=== PATIENT | male | born 1955 | race Caucasian/White ===

== ENCOUNTER → 2017-07-25 | Outpatient (CLI) | payer BC ==
[2017-07-25 09:30] LABS: BASO % 0.4 %; BASO ABS # 0.02 K/uL (0-0.2); COMPLETE YES; EOS % 3.8 %; HEMATOCRIT 45.4 % (42-52); IG% 0.2 %; LYMPH ABS # 1.33 K/uL (1.2-3.4); MEAN CELL VOLUME 92.8 fL (80-100); MEAN CORPUSCULAR HEMOGLOBIN 31.7 pg (25-34); MEAN CORPUSCULAR HGB CONC 34.1 g/dl (32-36); MEAN PLATELET VOLUME 9.9 fL (7.4-10.4); MONO % 12.4 %; NEUT % 55.2 %; PLATELET COUNT 184 K/uL (130-400); RED BLOOD COUNT 4.89 M/uL (4.7-6.1); WHITE BLOOD COUNT 4.75 K/uL (4.8-10.8)
[2017-07-25 10:24] LABS: ALT/SGPT 28 U/L (12-78); AST/SGOT 25 U/L (15-37); BLOOD UREA NITROGEN 14 mg/dl (7-18); BUN/CREATININE RATIO 16.8 (10-20); CALCIUM 8.7 mg/dl (8.5-10.1); CARBON DIOXIDE 26 mmol/L (21-32); CHLORIDE 107 mmol/L (98-107); CREATININE 0.83 mg/dl (0.60-1.40); GLUCOSE 97 mg/dl (70-99); SODIUM 140 mmol/L (136-145)
[2017-07-25 10:33] LABS: ALKALINE PHOSPHATASE 62 U/L (45-117); CHOLESTEROL 164 mg/dl (0-200); CHOLESTEROL/HDL RATIO 1.7; HDL CHOLESTEROL 96 mg/dl; LDL CHOLESTEROL CALCULATED 61 mg/dl; TRIGLYCERIDES 36 mg/dl (0-150); VERY LOW DENSITY LIPOPROT CALC 7 mg/dl
[2017-07-25 10:36] LABS: ESTIMATED AVERAGE GLUCOSE 108 mg/dl; HA1C FLAG Normal (Normal)
== END | disposition home or self-care (01) ==
LOC: C.LAB 08:50
PROVIDERS: ATTEND Physician Assistant Medical
DX: R53.83 Other fatigue (principal); E78.5 Hyperlipidemia, unspecified; R35.1 Nocturia; R73.09 Other abnormal glucose

== ENCOUNTER 2022-08-05 08:40 | Observation (INO) ==
--- NOTE | 2022-08-05 08:52 | Emergency Department Note ---
Impression & Plan Acute cholecystitis, Abdominal pain ED Provider Note NAME: ELIESER BERNAL AGE: 67 SEX: M : 1955 ARRIVES VIA: Walk-In INFORMANT: [Patient][, ] ED PROVIDER(S): [Emerson Morales MD] Chief Complaint: Abdominal pain HPI: Patient presents due to concern for right-sided abdominal pain which began around 2 PM last evening. The patient denies any obvious inciting event but states that he was treating an expansion tach off of a boiler with a 5 gallon bucket with water. Patient states that he move this may be about a foot but does not think that it causes symptoms. The patient did seem to get some dust in his nose drank some water had some postnasal drip and maybe 3 bouts of dry heaves. The patient denies any current nausea and has had no actual vomiting. The patient does chew snuff does drink 3-4 beers in the evening daily. Patient denies any chest pains or shortness of breath. The patient did try to take some Advil for his symptoms. This did not seem to improve and had difficulty with sleep last evening. Patient states that he does feel somewhat constipated as he typically has 2 bowel movements per day but only had 1 bowel movement yesterday in the morning. The patient denies any history of recent abdominal surgeries but has had 2 prior hernia repairs. He states this does not feel similar. Patient denies any dysuria or hematuria no blood in the stool. Patient denies any recent falls or trauma. Patient did have some constipation related symptoms after eating highly pizza several weeks ago and did have having pizza on Monday. Patient states he had no pain now. ROS: See HPI for pertinent positives and negatives. A total of 10 systems were reviewed and otherwise negative. Past medical history: See below Surgical history: See below Social history: See below Physical Exam: GENERAL: NAD, [wearing a mask,] non-toxic. EYE EXAM: Normal conjunctiva. PERRL, no anisocoria and EOM's grossly intact w/o pain. NECK: Supple, no nuchal rigidity, no adenopathy, non-tender. No signs of meningismus. FROM of the neck with good chin to chest and neck extension. No stridor. LUNGS: Clear to auscultation. Normal chest wall mechanics. HEART: NSR, no MRG. ABDOMEN: Abdomen soft, right upper and lower quadrant pain, negative obturators and psoas, normo-active bowel sounds, no masses, no rebound or guarding. BACK: No CVA TTP. SKIN: No rashes and no bruising. UPPER EXTREMITIES: Upper extremities are grossly normal. LOWER EXTREMITIES: Grossly normal, no edema. NEURO EXAM: A&O x3, cranial nerves II-XII grossly intact, normal speech, moves all 4 extremities. Differential diagnoses: Appendicitis, testicular torsion, infections, diverticulitis, UTI, obstruction, mesenteric ischemia, aortic pathology, inflammatory bowel disease, renal colic, PUD, pancreatitis, biliary pathology, hernia, volvulus, constipation, as well as other pathologies. Course: Patient was seen and evaluated the bedside. Full history physical exam was performed. EKG interpreted by me 88 Imaging Studies: See Below Cardiac monitoring: An order was placed for continuous cardiac monitoring. The monitor shows a rate of 88 with sinus rhythm. MDM: Patient was seen due to concern for abdominal pain. Blood work was obtained along with CT abdomen pelvis. Patient was ordered IV morphine and fluids. The patient's blood work showed a white count of 16 with a normal H&H and platelet count. The patient's kidney function is unremarkable with hyponatremia at 128. Bilirubin 1.3 but other LFTs are unremarkable with normal lipase. Urinalysis that showed blood but no signs of obvious infection. CT does show concern for acute cholecystitis. With the patient's hyponatremia may be secondary to the patient's alcohol use. I did speak with on-call general surgery Sweta Bills PA-C and the patient did have a COVID swab ordered and was told not to eat or drink. The patient did receive Zosyn at the behest of surgery. The patient subsequently taken to the OR and was admitted by Dr. Mckenzie. Past Med/Surg History Medical History No pertinent past medical history Surgical History H/O hernia repair Social History Smoking Status: Never smoker Tobacco Type: Cigarettes Do You Dip or Chew Tobacco: Yes; Hx Alcohol Use: Yes Hx Substance Use: No Preferred Language: Mongolian Feels Safe at Home: Yes Allergies Allergies Allergy/AdvReac Type Severity Reaction Status Date / Time No Known Allergies Allergy Unverified 08/05/22 16:11 Home Meds Previous Rx's Medication Instructions Recorded oxycodone-acetaminophen 5 mg-325 1 - 2 tab PO .q4-6h PRN pain, for 08/05/22 mg tablet (Percocet) initial therapy, max 6 tabs per day #15 tabs Results & Data (ED) Vital Signs Vital Signs - 24 hr 08/05/22 08:44 08/05/22 09:20 08/05/22 10:40 Temperature 36.6 C Temperature Source Temporal Artery Scan Pulse Rate 91 H Pulse Rate [Apical] 84 Pulse Rhythm [Apical] Pulse Strength [Apical] Respiratory Rate 16 18 Respiratory Effort / Characteristics Non-Labored Respiratory Depth Normal Respiratory Pattern Blood Pressure 152/82 H Blood Pressure [Left Arm] 146/90 H Blood Pressure Mean 105 Blood Pressure Mean [Left Arm] 108 Blood Pressure Position [Left Arm] Pulse Oximetry 98 98 97 Oxygen Delivery Method Room Air Room Air Room Air Oxygen Flow Rate Sepsis Recent Fever Within 48 Hours No Sepsis New/Unexplained Change in Mental Status No Sepsis Action Taken by Nursing No Action Required 08/05/22 12:00 08/05/22 12:56 08/05/22 15:08 Temperature 36.8 C 36.4 C L Temperature Source Oral Temporal Artery Scan Pulse Rate Pulse Rate [Apical] 85 87 85 Pulse Rhythm [Apical] Regular Regular Pulse Strength [Apical] Normal Normal Respiratory Rate 22 20 16 Respiratory Effort / Characteristics Non-Labored Spontaneous Non-Labored Spontaneous Respiratory Depth Normal Normal Respiratory Pattern Regular Regular Blood Pressure Blood Pressure [Left Arm] 145/90 H 137/88 133/91 Blood Pressure Mean Blood Pressure Mean [Left Arm] 108 104 105 Blood Pressure Position [Left Arm] Sitting Semi-fowlers Pulse Oximetry 98 98 100 Oxygen Delivery Method Room Air Room Air Oxymask Oxygen Flow Rate 9 Sepsis Recent Fever Within 48 Hours Sepsis New/Unexplained Change in Mental Status Sepsis Action Taken by Assisted Medications Current Medication List: was personally reviewed by me Laboratory Data Attestation: I reviewed the patient's lab results. Result diagrams: 08/05/22 09:15 08/05/22 09:15 Lab Results 09/30/22 09/30/22 09/30/22 Range/Units 09:15 09:15 09:15 WBC 16.15 H (4.8-10.8) K/ul RBC 5.06 (4.63-6.08) M/uL Hgb 15.9 (14.0-18.0) g/dl Hct 45.6 (40.1-51.0) % MCV 90.1 (80.0-100.0) fL MCH 31.4 (25.0-34.0) pg MCHC 34.9 (32.0-36.0) g/dL RDW Std Deviation 41.1 (36.4-46.3) fL RDW Coeff of Francisca 12.5 (11.5-14.5) % Plt Count 180 (130-400) K/uL MPV 9.5 (9.4-12.4) fL Immature Gran % (Auto) 0.4 % Neut % (Auto) 89.7 % Lymph % (Auto) 3.0 % Garfield % (Auto) 6.7 % Eos % (Auto) 0.0 % Baso % (Auto) 0.2 % Neut # (Auto) 14.49 H (1.4-6.5) K/uL Lymph # (Auto) 0.48 L (1.2-3.4) K/uL Garfield # (Auto) 1.08 H (0.24-0.82) K/uL Eos # (Auto) 0.00 (0-0.50) K/uL Baso # (Auto) 0.03 (0-0.2) K/uL Immature Gran # (Auto) 0.07 H (0.00-0.02) K/uL Sodium 128 L (136-145) mmol/L Potassium 4.0 (3.5-5.1) mmol/L Chloride 94 L (98-107) mmol/L Carbon Dioxide 27 (21-32) mmol/L Anion Gap 7 (3-11) BUN 9 (6-23) mg/dl Creatinine 0.65 (0.6-1.4) mg/dl Est Cr Clr Drug Dosing 110.7 ml/min Est GFR ( Amer) 115.1 ml/min Est GFR (Non-Af Amer) 99.3 ml/min BUN/Creatinine Ratio 13.8 (10-20) Glucose 123 H (70-99(Fasting)) mg/dl Calcium 9.0 (8.5-10.1) mg/dl Total Bilirubin 1.3 H (0.2-1.0) mg/dl AST 30 (13-39) U/L ALT 20 (7-52) U/L Alkaline Phosphatase 64 (34-104) U/L Total Protein 6.8 (6.0-8.3) gm/dl Albumin 3.9 (3.4-5.0) gm/dl Globulin 2.9 (2.5-4.0) gm/dl Albumin/Globulin Ratio 1.3 (0.9-2) Lipase 7 L (11-82) U/L Urine Color Yellow Urine Appearance Clear (Clear) Urine pH 6.5 (4.5-7.5) Ur Specific [place] 1.007 (1.000-1.030) Urine Protein Negative (Negative) Urine Glucose (UA) Negative (Negative) Urine Ketones Trace H (Negative) Urine Blood 2+ H (Negative) Urine Nitrite Negative (Negative) Urine Bilirubin Negative (Negative) Urine Urobilinogen Negative (Negative) Ur Leukocyte Esterase Negative (Negative) Urine WBC (Auto) 0 (0-5) /hpf Urine RBC (Auto) 10-30 H (0-4) /hpf U Hyaline Cast (Auto) 0 (0-5) /lpf U Epithel Cells (Auto) 0-5 (0-5) /lpf Urine Bacteria (Auto) Negative (Negative) SARS-CoV-2, RNA, NAAT (NEGATIVE) 08/05/22 Range/Units 11:08 WBC (4.8-10.8) K/ul RBC (4.63-6.08) M/uL Hgb (14.0-18.0) g/dl Hct (40.1-51.0) % MCV (80.0-100.0) fL MCH (25.0-34.0) pg MCHC (32.0-36.0) g/dL RDW Std Deviation (36.4-46.3) fL RDW Coeff of Francisca (11.5-14.5) % Plt Count (130-400) K/uL MPV (9.4-12.4) fL Immature Gran % (Auto) % Neut % (Auto) % Lymph % (Auto) % Garfield % (Auto) % Eos % (Auto) % Baso % (Auto) % Neut # (Auto) (1.4-6.5) K/uL Lymph # (Auto) (1.2-3.4) K/uL Garfield # (Auto) (0.24-0.82) K/uL Eos # (Auto) (0-0.50) K/uL Baso # (Auto) (0-0.2) K/uL Immature Gran # (Auto) (0.00-0.02) K/uL Sodium (136-145) mmol/L Potassium (3.5-5.1) mmol/L Chloride (98-107) mmol/L Carbon Dioxide (21-32) mmol/L Anion Gap (3-11) BUN (6-23) mg/dl Creatinine (0.6-1.4) mg/dl Est Cr Clr Drug Dosing ml/min Est GFR ( Amer) ml/min Est GFR (Non-Af Amer) ml/min BUN/Creatinine Ratio (10-20) Glucose (70-99(Fasting)) mg/dl Calcium (8.5-10.1) mg/dl Total Bilirubin (0.2-1.0) mg/dl AST (13-39) U/L ALT (7-52) U/L Alkaline Phosphatase (34-104) U/L Total Protein (6.0-8.3) gm/dl Albumin (3.4-5.0) gm/dl Globulin (2.5-4.0) gm/dl Albumin/Globulin Ratio (0.9-2) Lipase (11-82) U/L Urine Color Urine Appearance (Clear) Urine pH (4.5-7.5) Ur Specific [place] (1.000-1.030) Urine Protein (Negative) Urine Glucose (UA) (Negative) Urine Ketones (Negative) Urine Blood (Negative) Urine Nitrite (Negative) Urine Bilirubin (Negative) Urine Urobilinogen (Negative) Ur Leukocyte Esterase (Negative) Urine WBC (Auto) (0-5) /hpf Urine RBC (Auto) (0-4) /hpf U Hyaline Cast (Auto) (0-5) /lpf U Epithel Cells (Auto) (0-5) /lpf Urine Bacteria (Auto) (Negative) SARS-CoV-2, RNA, NAAT NEGATIVE (NEGATIVE) Administered Medications Discontinued Medications Acetaminophen (Acetaminophen 500 Mg Tab) 1,000 mg PO NOW STA Stop: 08/05/22 09:42 Last Admin: 08/05/22 10:31 Dose: 1,000 mg Documented By: OL Bupivacaine HCl (Bupivacaine 0.5 % 5 Mg/1 Ml Mpf 30ml Vial) Confirm Administered Dose 30 ml .ROUTE .STK-MED ONE Stop: 08/05/22 12:29 Last Admin: 08/05/22 14:52 Dose: 30 ml Documented By: JUANITA Sodium Chloride (Nss) 500 mls @ 999 mls/hr IV .Q31M STA Stop: 08/05/22 09:37 Last Infusion: 08/05/22 09:57 Dose: 0 mls/hr Documented By: Admin: 08/05/22 09:21 Dose: 999 mls/hr Documented By: OL Piperacillin Sod/Tazobactam Sod (Zosyn) 4.5 gm in 120 mls @ 240 mls/hr IV NOW ONE Stop: 08/05/22 11:50 Last Admin: 08/05/22 11:28 Dose: 240 mls/hr Documented By: BARAK Ioversol (Ioversol 350 Mg 100ml Prefilled Syringe) 92 ml IV ONCE ONE Stop: 08/05/22 10:21 Last Admin: 08/05/22 10:21 Dose: 92 ml Documented By: BALBIR Miscellaneous (Surgicel Absorb Hemostat 2in X 14in) 1 each TOP ONCE ONE Stop: 08/05/22 14:31 Last Admin: 08/05/22 14:31 Dose: 1 each Documented By: JUANITA Morphine Sulfate (Morphine Sulfate 4 Mg/Ml 1 Ml Carp\Vial) 4 mg IV NOW STA Stop: 08/05/22 09:08 Last Admin: 08/05/22 09:38 Dose: Not Given Documented By: OL Imaging Data Radiologist's Impression: Abdomen/Pelvis CT 08/05/22 09:07 CT OF THE ABDOMEN AND PELVIS WITH CONTRAST CLINICAL HISTORY: Right upper quadrant pain. COMPARISON STUDY: None. TECHNIQUE: Following IV administration of 92 mL of Optiray, axial images of the abdomen and pelvis were obtained from the lung bases to the proximal femurs. Images were reviewed in the axial, sagittal, and coronal planes. IV contrast was administered without complication. Automated exposure control was utilized for the study. A dose lowering technique was utilized adhering to the principles of ALARA. CT DOSE: 804.60 mGycm FINDINGS: Subpleural opacities within the lower lungs are noted. No pneumatosis, free air or portal venous gas is present. There is hepatic steatosis. There is no biliary ductal dilatation. Note is made of a 2.3 cm gallstone within the gallbladder neck. There are multiple additional smaller stones within the fundus. The gallbladder is distended and moderate gallbladder wall thickening is present. Significant adjacent stranding is noted. There is also a small amount of fluid adjacent to the pancreas and along the superior mesenteric and portal veins. This is likely related to acute cholecystitis. Prominent upper abdominal lymph nodes are likely reactive. The spleen, adrenal glands and kidneys are unremarkable. There is no evidence for a bowel obstruction. The cecum is within the right mid abdomen. The appendix is normal. Colonic diverticulosis is noted without evidence for acute diverticulitis. Left inguinal hernia repair is noted. Bladder is distended. No acute fracture or suspicious lesion within the visualized skeletal structures is present. IMPRESSION: 1. Findings consistent with severe acute cholecystitis. 2. Stranding adjacent to the pancreas and duodenum is likely related to cholecystitis. Acute pancreatitis is considered less likely but the findings could be correlated with serum lipase level. No biliary ductal dilatation. 3. Subpleural opacities within the lower lungs which favor atelectasis however an infectious process could appear similar. ACT 112: Negative or not required by law. Electronically signed by: Gabriel Johnson M.D. 08/05/2022 10:46 AM Discharge Plan Visit Data Chief Complaint: Abdominal Pain Stated Complaint: STOMACH PAIN/DISCOMFORT ED Provider: Emerson Morales Discharge Problem: Acute cholecystitis, Abdominal pain Patient Disposition: Being Evaluated by Surgeon Discharge Instructions Interventions: ED Discharge Assessment Last Done: 08/05/22 12:18
[2022-08-05] MEDS ORDERED: MoRPHine SULFATE 4 MG/ML 1 ML CARP\\VIAL IV STA (09:07)
[2022-08-05] MEDS ORDERED: SODIUM CHLORIDE 0.9% 500 ML IV STA (09:07)
[2022-08-05 09:25] LABS: Basophils # (auto) 0.03 K/uL (0-0.2); Basophils % (auto) 0.2 %; Hematocrit (blood only) 45.6 % (40.1-51.0); Hemoglobin 15.9 g/dl (14.0-18.0); Immature Granulocytes # (auto) 0.07 K/uL (0.00-0.02); Immature Granulocytes % (auto) 0.4 %; Lymphocytes # (auto) 0.48 K/uL (1.2-3.4); Mean Corpuscular Hemoglobin 31.4 pg (25.0-34.0); Mean Corpuscular Hgb Conc 34.9 g/dL (32.0-36.0); Mean Corpuscular Volume 90.1 fL (80.0-100.0); Mean Platelet Volume 9.5 fL (9.4-12.4); Monocytes # (auto) 1.08 K/uL (0.24-0.82); Monocytes % (auto) 6.7 %; Neutrophils # (auto) 14.49 K/uL (1.4-6.5); Neutrophils % (auto) 89.7 %; Platelet Count 180 K/uL (130-400); RDW Coefficient of Variation 12.5 % (11.5-14.5); RDW Standard Deviation 41.1 fL (36.4-46.3); Red Blood Count 5.06 M/uL (4.63-6.08); White Blood Count 16.15 K/ul (4.8-10.8)
[2022-08-05 09:27] LABS: Appearance Urine Clear (Clear); Bacteria Urine Automated Negative (Negative); Bilirubin Urine Negative (Negative); Blood Urine 2+ (Negative); Cast Urine Automated 0 /lpf (0-5); Color Urine Yellow; Epithelial Cell Urine Auto 0-5 /lpf (0-5); Glucose Urine UA Negative (Negative); Ketones Urine Trace (Negative); Leukocyte Esterase Urine Negative (Negative); Nitrite Urine Negative (Negative); Protein Urine Negative (Negative); Specific Gravity Urine 1.007 (1.000-1.030); Urobilinogen Urine Negative (Negative); WBC Urine Automated 0 /hpf (0-5); pH Urine 6.5 (4.5-7.5)
[2022-08-05] MEDS ORDERED: ACETAMINOPHEN 500 MG TAB PO STA (09:41)
[2022-08-05 09:50] LABS: Albumin Globulin Ratio 1.3 (0.9-2); Albumin Level 3.9 gm/dl (3.4-5.0); BUN Creatinine Ratio 13.8 (10-20); Bilirubin,Total 1.3 mg/dl (0.2-1.0); Creatinine Clr Calc Pharmacy 110.7 ml/min; Est GFR (African American) 115.1 ml/min; Est GFR (Non-African American) 99.3 ml/min; Globulin 2.9 gm/dl (2.5-4.0); Total Protein 6.8 gm/dl (6.0-8.3)
[2022-08-05] MEDS ORDERED: IOVERSOL 350 MG 100mL Prefilled Syringe IV ONE (10:20)
--- NOTE | 2022-08-05 10:48 | CT Scan Report ---
CT OF THE ABDOMEN AND PELVIS WITH CONTRAST CLINICAL HISTORY: Right upper quadrant pain. COMPARISON STUDY: None. TECHNIQUE: Following IV administration of 92 mL of Optiray, axial images of the abdomen and pelvis we re obtained from the lung bases to the proximal femurs. Images were reviewed in the axial, sagittal, and coronal planes. IV contrast was administered without complication. Automated exposure control wa s utilized for the study. A dose lowering technique was utilized adhering to the principles of ALARA . CT DOSE: 804.60 mGycm FINDINGS: Subpleural opacities within the lower lungs are noted. No pneumatosis, free air or portal v enous gas is present. There is hepatic steatosis. There is no biliary ductal dilatation. Note is made of a 2.3 cm gallstone within the gallbladder neck. There are multiple additional smaller stones with in the fundus. The gallbladder is distended and moderate gallbladder wall thickening is present. Sign ificant adjacent stranding is noted. There is also a small amount of fluid adjacent to the pancreas a nd along the superior mesenteric and portal veins. This is likely related to acute cholecystitis. Pro minent upper abdominal lymph nodes are likely reactive. The spleen, adrenal glands and kidneys are un remarkable. There is no evidence for a bowel obstruction. The cecum is within the right mid abdomen. The appendix is normal. Colonic diverticulosis is noted without evidence for acute diverticulitis. Le ft inguinal hernia repair is noted. Bladder is distended. No acute fracture or suspicious lesion with in the visualized skeletal structures is present. IMPRESSION: 1. Findings consistent with severe acute cholecystitis. 2. Stranding adjacent to the pancreas and duodenum is likely related to cholecystitis. Acute pancreat itis is considered less likely but the findings could be correlated with serum lipase level. No bilia ry ductal dilatation. 3. Subpleural opacities within the lower lungs which favor atelectasis however an infectious process could appear similar. ACT 112: Negative or not required by law. Electronically signed by: Gabriel Johnson M.D. 08/05/2022 10:46 AM
[2022-08-05] MEDS ORDERED: PIPERACILLIN/TAZOBACTAM 4.5 GM/120 ML BAG IV ONE (11:21)
--- NOTE | 2022-08-05 11:33 | History & Physical Report ---
Date of Service August 05, 2022 Assessment & Plan (1) Acute cholecystitis: Plan: This is a 67y M with no significant PMH who presents to the [facility] ED on 08/05/22 with complaints of abdominal pain starting yesterday. In the ER a CT a/p was obtained that revealed findings consistent with acute cholecystitis. WBC 16. LFTs show Tb: 1.3, other LFTs unremarkable. Lipase 7. On exam patient's abdomen is tender to palpation in the epigastric and RUQ. Clinical findings and exam consistent with cholecystitis. We will proceed with taking patient to the OR for a laparoscopic cholecystectomy today. Keep patient NPO with IVF, IV abx ordered, Dr. Mckenzie will obtain consent. History of Present Illness Primary Care Provider: Viet Ray This is a 67y M with no significant PMH who presents to the [facility] ED on 08/05/22 with complaints of abdominal pain. Patient states his pain started yesterday around 2pm. Prior to the pain starting he had a banana and yogurt for bfast and a wrap for lunch. The pain has been constant in the epigastric/RUQ region, rating it a 7/10 in severity. Reports pain also radiates into his back in between the shoulder blades. He has not had anything to eat since yesterday for lunch other than drinking water. He developed some nausea and 1 bout of emesis (mucous/saliva like in nature). He was unable to get comfortable or get any sleep last night. Due to ongoing symptoms he presented to the ER today. A CT a/p was obtained that revealed findings consistent with acute cholecystitis. Patient denies any symptoms like this before. Prior abdominal surgical history includes a laparoscopic bilateral inguinal hernia repair. Does note a history of alcohol intake, 5-6 beers/day. Past Med/Surg History Medical History No pertinent past medical history Surgical History H/O hernia repair Social History Smoking Status: Never smoker Tobacco Type: Cigarettes Do You Dip or Chew Tobacco: Yes; Hx Alcohol Use: Yes Hx Substance Use: No Preferred Language: Scottish Feels Safe at Home: Yes Review of Systems Constitutional: no fever, no chills and no anorexia Respiratory: no dyspnea Cardiovascular: no chest pain Gastrointestinal: + abdominal pain (RUQ pain), + nausea and + vomiting; no bloating and no diarrhea/loose stools Musculoskeletal: + back pain (between shoulder blades) Physical Exam Physical Exam: awake/alert, no distress Constitutional: WD/WN, vitals as above Respiratory: normal respiratory effort Gastrointestinal (Abdomen): Inspection/Auscultation: + abdomen distended Percussion/Palpation: + abdomen tender (epigastric and RUQ) and abdomen soft Results & Data Results & Data ([facility]) Vital Signs (Past 12 Hours) Vital Signs Temp Pulse Pulse Resp BP BP Pulse Ox 08/05/22 10:40 84 18 146/90 H 97 08/05/22 09:20 98 08/05/22 08:44 36.6 C 91 H 16 152/82 H 98 O2 Del Method 08/05/22 10:40 Room Air 08/05/22 09:20 Room Air 08/05/22 08:44 Room Air Diagnostic Findings CT OF THE ABDOMEN AND PELVIS WITH CONTRAST CLINICAL HISTORY: Right upper quadrant pain. COMPARISON STUDY: None. TECHNIQUE: Following IV administration of 92 mL of Optiray, axial images of the abdomen and pelvis were obtained from the lung bases to the proximal femurs. Images were reviewed in the axial, sagittal, and coronal planes. IV contrast was administered without complication. Automated exposure control was utilized for the study. A dose lowering technique was utilized adhering to the principles of ALARA. CT DOSE: 804.60 mGycm FINDINGS: Subpleural opacities within the lower lungs are noted. No pneumatosis, free air or portal venous gas is present. There is hepatic steatosis. There is no biliary ductal dilatation. Note is made of a 2.3 cm gallstone within the gallbladder neck. There are multiple additional smaller stones within the fundus. The gallbladder is distended and moderate gallbladder wall thickening is present. Significant adjacent stranding is noted. There is also a small amount of fluid adjacent to the pancreas and along the superior mesenteric and portal veins. This is likely related to acute cholecystitis. Prominent upper abdominal lymph nodes are likely reactive. The spleen, adrenal glands and kidneys are unremarkable. There is no evidence for a bowel obstruction. The cecum is within the right mid abdomen. The appendix is normal. Colonic diverticulosis is noted without evidence for acute diverticulitis. Left inguinal hernia repair is noted. Bladder is distended. No acute fracture or suspicious lesion within the visualized skeletal structures is present. IMPRESSION: 1. Findings consistent with severe acute cholecystitis. 2. Stranding adjacent to the pancreas and duodenum is likely related to cholecystitis. Acute pancreatitis is considered less likely but the findings could be correlated with serum lipase level. No biliary ductal dilatation. 3. Subpleural opacities within the lower lungs which favor atelectasis however an infectious process could appear similar. ACT 112: Negative or not required by law. Electronically signed by: Gabriel Johnson M.D. 08/05/2022 10:46 AM Supervising Physician Co-Signing Physician Notes Patient seen and examined, labs and imaging reviewed, agree with above. 67-year-old male presented with abdominal pain after eating lunch yesterday. He denies history of postprandial pain in the past. Prior inguinal hernia repairs, no abdominal surgery in the past. Currently does not take any medications denies any history of heart disease. On exam he is afebrile with stable vitals. Tender to palpation in the right upper quadrant. WBC elevated. CT personally viewed and interpreted by myself, agree with the assessment of cholelithiasis with cholecystitis. Plan for laparoscopic cholecystectomy with possible cholangiogram Risk the procedure were discussed to include but not limited to bleeding, infection, retained stone, bile leak, damage surrounding structures, need for future more extensive surgery, conversion open, and the risk of anesthesia Will admit postoperatively PG Care Time/CCT Total # of Minutes Spent Total Time Spent with Patient: Total time spent is greater than 50% in coordination of care (as documented) at patient's floor/unit and/or counseling patient: Coding Level of Care Code INT OBSERVATION CARE 50M LVL 2 Diagnoses Acute cholecystitis K81.0
[2022-08-05] MEDS ORDERED: BUPIVACAINE 0.5 % 5 MG/1 ML MPF 30ML VIAL ONE (12:28)
[2022-08-05] MEDS ORDERED: MIDAZOLAM HCL 1 MG/ML 2ML VIAL ONE (12:40)
[2022-08-05] MEDS ORDERED: fentaNYL citrate 100 MCG/2 ML VIAL ONE ×2 (12:41→14:01)
[2022-08-05] MEDS ORDERED: FLUMAZENIL 0.1 MG/1 ML 10 ML VIAL IV PRN (13:21)
[2022-08-05] MEDS ORDERED: ATROPINE SULFATE 0.1 MG/ML 10ML SYR IV PRN (13:21)
[2022-08-05] MEDS ORDERED: PROMETHAZINE HCL 12.5 MG in SODIUM CHLORIDE 0.9% 50 ML IV PRN (13:21)
[2022-08-05] MEDS ORDERED: LABETALOL HCL IV 5 MG/ML 20ML IV PRN (13:21)
[2022-08-05] MEDS ORDERED: fentaNYL citrate 100 MCG/2 ML VIAL IV PRN (13:21)
[2022-08-05] MEDS ORDERED: ePHEDrine sulfate 50 MG/ML AMP IV PRN (13:21)
[2022-08-05] MEDS ORDERED: NALOXONE HCL 0.4 MG/1 ML VIAL/CARP IV PRN (13:21)
[2022-08-05] MEDS ORDERED: ONDANSETRON INJ 2 MG/ML 2 ML VIAL IV PRN ×2 (13:21→16:10)
--- NOTE | 2022-08-05 13:21 | Anesthesiology Consultation ---
Date of Service August 05, 2022 Assessment & Plan Chart Review Chart Review: Acceptable Risk for Surgery and Patient NOT seen in Pre Admission Testing Consults Requested none ASA [id number] Proposed Anesthesia Anesthesia Type: General Risk / Benefits Reviewed With: PT / POA / Parent / Guardian, Accepts Plan and Informed Consent Obtained Additional Comments: covid test neg. History Surgery Operation Date: 08/05/22 15:55 Proposed Procedures p Laparoscopic Cholecystectomy - Edi Mckenzie, DO, FACS Height/Weight Height: 5 ft 10 in Weight: 86.4 kg NPO Date Last Intake of Fluids: 08/05/22 Time Last Intake of Fluids: 09:00 Date Last Intake of Solids: 08/05/22 Time Last Intake of Solids: 13:00 Last Intake of Solids Comment: snuff @ [id number] am today Past Medical History Medical History No pertinent past medical history Exercise / Class Metabolic Activity II 4-5 Yardwork/Stairs/Walk up hill Past Surgical History Surgical History H/O hernia repair Past Anesthesia History No Hx of Anesthesia Complications and No Family Hx of Anesthesia Complications History of PONV No Hx of PONV and No Hx of Motion Sickness Social History Smoking Status: Never smoker Do You Dip or Chew Tobacco: Yes Hx Alcohol Use: Yes Hx Substance Use: No Physical Exam Vital Signs Last Vital Signs Temp 36.8 C 08/05/22 12:56 Pulse 87 08/05/22 12:56 Resp 20 08/05/22 12:56 BP 137/88 08/05/22 12:56 Pulse Ox 98 08/05/22 12:56 O2 Del Method 08/05/22 12:56 Constitutional no acute distress and not obese ENMT Mouth: + dental restorations; no dentition abnormality Thyromental Distance: > or= 3.5 Finger Breadths Mallampati Class: II Neck normal visual inspection and trachea midline; neck extension not limited Respiratory normal respiratory effort Auscultation: lungs clear to auscultation bilaterally Cardiovascular Rate/Rhythm: regular rate and regular rhythm Heart Sounds: no murmur Vessels: no carotid bruit Musculoskeletal Spine: normal cervical ROM Extremities: extremities normal to inspection; full ROM of extremities Neurologic moves all extremities Motor/Sensory: no sensory deficit Psychiatric Orientation: alert and oriented x 3 Testing Laboratory Results 08/05/22 09:15 08/05/22 09:15 Urine Color Yellow 08/05/22 09:15 Urine Appearance Clear (Clear) 08/05/22 09:15 Urine pH 6.5 (4.5-7.5) 08/05/22 09:15 Ur Specific [place] 1.007 (1.000-1.030) 08/05/22 09:15 Urine Protein Negative (Negative) 08/05/22 09:15 Urine Glucose (UA) Negative (Negative) 08/05/22 09:15 Urine Ketones Trace (Negative) H 08/05/22 09:15 Urine Nitrite Negative (Negative) 08/05/22 09:15 Ur Leukocyte Esterase Negative (Negative) 08/05/22 09:15 Urine WBC (Auto) 0 /hpf (0-5) 08/05/22 09:15 Urine RBC (Auto) 10-30 /hpf (0-4) H 08/05/22 09:15 U Hyaline Cast (Auto) 0 /lpf (0-5) 08/05/22 09:15 U Epithel Cells (Auto) 0-5 /lpf (0-5) 08/05/22 09:15 Urine Bacteria (Auto) Negative (Negative) 08/05/22 09:15
--- NOTE | 2022-08-05 13:26 | Communication Note ---
Date of Service: August 05, 2022 08/05/2022 ARIEL- ARTEM@ [email or web address]
[2022-08-05] MEDS ORDERED: ONDANSETRON INJ 2 MG/ML 2 ML VIAL ONE (13:43)
[2022-08-05] MEDS ORDERED: SUCCINYLCHOLINE CHLORIDE 20 MG/ML 10 ML VIAL IV ONE (13:43)
[2022-08-05] MEDS ORDERED: LIDOCAINE 2% MPF LOCAL 5 ML VIAL INFIL ONE (13:43)
[2022-08-05] MEDS ORDERED: ROCURONIUM BROMIDE 10 MG/ML 5 ML VIAL IV ONE (13:43)
[2022-08-05] MEDS ORDERED: PROPOFOL IV EMULSION 10 MG/ML 20 ML VIAL IV ONE (13:43)
[2022-08-05] MEDS ORDERED: Patient's ALLERGY Info needs ENTERED SCH (13:45)
[2022-08-05] MEDS ORDERED: SURGICEL ABSORB HEMOSTAT 2IN X 14IN TOP ONE (14:30)
[2022-08-05] MEDS ORDERED: GLYCOPYRROLATE 0.2 MG/ML VIAL ONE (14:46)
[2022-08-05] MEDS ORDERED: NEOSTIGMINE METHYLSULFATE 1 MG/ML 10ML VIAL ONE (14:46)
--- NOTE | 2022-08-05 15:10 | Operative Report ---
PG Post Operative Report Pre & Post Diagnosis Operation Date: 08/05/22 15:55 Pre-Op Diagnosis: (1) Acute cholecystitis Post-Op Diagnosis: (1) Acute cholecystitis I identified the patient and participated in the time-out.: Yes Procedure Operation Date: 08/05/22 15:55 Actual Procedures p Laparoscopic Cholecystectomy(Not Applicable) - Edi Mckenzie DO, PETE Surgeon Edi Mckenzie DO, PETE Chuck Wagon Driver Sweta Almanza Estimated Blood Loss 35 Findings Consistent with Post-Op Diagnosis Acutely inflamed gallbladder. Decompressed with aspiration needle. Critical view of safety obtained, cystic duct and artery doubly clipped and divided. Bleeding from liver bed controlled with cautery and Surgicel. Epigastric incision extended to remove gallbladder, posterior fascia and anterior fascia closed separately. Specimens Gallbladder Anesthesia Type General Complications none Disposition Accompanied Patient To Recovery: No Disposition: Recovery Room Indications 67-year-old male presented with signs and symptoms of acute cholecystitis, plan for laparoscopic cholecystectomy with possible cholangiogram. The risks of the procedure were discussed, all questions were answered, and the patient agreed to proceed with surgery as planned. Description of Procedure The patient was properly identified, consented, and taken to the operating room where he was placed in the supine position. General endotracheal anesthesia was induced. SCDs and a safety belt were placed. Preoperative antibiotics were administered. The patient's abdomen was prepped and draped in the standard sterile fashion. A surgical timeout was performed and all parties were in agreement that this was the correct patient and procedure to be performed and we continued as planned. An incision was made superior and to the left of the umbilicus overlying the rectus muscle and the Veress needle was inserted. Saline drop test confirmed entry into the peritoneum. The abdomen was insufflated with carbon dioxide which the patient tolerated without incident. The abdomen was then entered using the Optiview technique and a 5 mm trocar. The laparoscope was inserted and no damage from initial trocar or Veress needle placement was noted, no gross abnormalities were noted within the 4 quadrants of the abdomen. An 11 mm port was placed in the subxiphoid position and two 5 mm ports were then placed in the right subcostal position. The patient was placed in reverse Trendelenburg position and rotated towards the left. The gallbladder was acutely inflamed. Patchy areas of erythema and possible necrosis. The gallbladder was aspirated to allow for retraction. The dome of the gallbladder was retracted towards the left upper quadrant and the infundibul um was retracted toward the right lower quadrant revealing Calot's triangle. Peritoneal attachments were taken down with electrocautery and blunt dissection. The cystic duct and artery were circumferentially dissected. A window of safety was obtained showing the cystic duct entering the gallbladder with no aberrant structures noted. The cystic duct and artery were doubly clipped and divided. The gallbladder was then lifted off the gallbladder fossa with electrocautery. The gallbladder was placed in an Endo Catch bag and removed through the subxiphoid port site. The port site had to be extended to allow for removal of the gallbladder. Bleeding from the liver bed was controlled with cautery. A piece of Surgicel was placed and pressure was held for several minutes. Surgicel was removed and hemostasis appeared good. The right upper quadrant was irrigated and hemostasis was found to be good. 5 mm trochars were removed under direct visualization and the abdomen was allowed to collapse. The subxiphoid port site fascia was closed with 0 Vicryl suture in 2 layers. The wound was irrigated, and the skin of all ports was closed with 4-0 Monocryl subcuticular sutures. Dermabond was placed over the wounds. The patient was extubated in the operating room and taken to the PACU where he recovered without apparent incident. All sponge, instrument and needle counts were correct at the conclusion of the procedure. The patient tolerated the procedure well. The physician's imaging assistant was present and scrubbed for the entirety of the case and was essential in positioning the patient, prepping and draping, retraction and exposure, driving the laparoscope, removal of the gallbladder, closure the incisions, and placement of the dressings. I attest to the content of the Intraoperative Record and any orders documented therein. Any exceptions are noted below.
--- NOTE | 2022-08-05 15:45 | Anesthesiology Progress Note ---
Date of Service August 05, 2022 Anesthesia Post Procedure Vital Signs Vital Signs: Temp Pulse Pulse Resp BP BP Pulse Ox 08/05/22 15:35 85 19 144/88 H 100 08/05/22 15:25 88 12 118/85 99 08/05/22 15:15 86 12 120/84 99 08/05/22 15:08 36.4 C L 85 16 133/91 100 08/05/22 12:56 36.8 C 87 20 137/88 98 08/05/22 12:00 85 22 145/90 H 98 08/05/22 10:40 84 18 146/90 H 97 08/05/22 09:20 98 08/05/22 08:44 36.6 C 91 H 16 152/82 H 98 O2 Del Method O2 Flow Rate 08/05/22 15:35 Room Air 08/05/22 15:25 Oxymask 9 08/05/22 15:15 Oxymask 9 08/05/22 15:08 Oxymask 9 08/05/22 12:56 Room Air 08/05/22 12:00 Room Air 08/05/22 10:40 Room Air 08/05/22 09:20 Room Air 08/05/22 08:44 Room Air Transfer of Care Handoff Completed per policy Notes Mental Status: alert / awake / arousable Patient Amnestic to Procedure: Yes Nausea / Vomiting: adequately controlled Pain: adequately controlled Airway Patency, RR, SpO2: stable & adequate BP & HR: stable & adequate Hydration State: stable & adequate Anesthetic Complications: no major complications apparent
[2022-08-05] MEDS ORDERED: oxyCODONE HCL IR 5 MG TAB (IMMEDIATE RELEASE) PO PRN ×2 (16:10)
[2022-08-05] MEDS ORDERED: MoRPHine SULFATE 4 MG/ML 1 ML CARP\\VIAL IV PRN (16:10)
[2022-08-05] MEDS ORDERED: MoRPHine SULFATE 2 MG/ML CARP IV PRN (16:10)
[2022-08-05] MEDS: SODIUM CHLORIDE 0.9% 1000ML 1,000 ML IV SCH (16:34)
[2022-08-05] MEDS: ACETAMINOPHEN 1,000 MG/100 ML VIAL IV SCH (16:40)
[2022-08-05] MEDS: PIPERACILLIN/TAZOBACTAM 3.375 GM in DEXTROSE 5% 100 ML IV SCH (17:36)
--- NOTE | 2022-08-05 22:31 | Electrocardiogram Report ---
Test Reason : Blood Pressure : / mmHG Vent. Rate : 087 BPM Atrial Rate : 087 BPM P-R Int : 168 ms QRS Dur : 096 ms QT Int : 374 ms P-R-T Axes : 050 -25 -02 degrees QTc Int : 450 ms Normal sinus rhythm Normal ECG No previous ECGs available Confirmed by Alex Jackson ([id number]) on 08/05/2022 10:30:30 PM Referred By: REFERRED SELF Confirmed By:Alex Jackson
[2022-08-06] MEDS: ACETAMINOPHEN 1,000 MG/100 ML VIAL IV SCH ×2 (00:21→07:46)
[2022-08-06] MEDS: SODIUM CHLORIDE 0.9% 1000ML 1,000 ML IV SCH ×2 (00:39→09:48)
[2022-08-06] MEDS: PIPERACILLIN/TAZOBACTAM 3.375 GM in DEXTROSE 5% 100 ML IV SCH ×2 (00:39→08:35)
--- NOTE | 2022-08-06 05:36 | Surgery Progress Note ---
Date of Service August 06, 2022 Assessment & Plan (1) Acute cholecystitis: Plan: Status post laparoscopic cholecystectomy on 08/05/2022 (postoperative day #1) We will likely advance diet to solids later this morning Continue IV fluids until certain oral intake will be adequate Continue antiemetics Continue analgesics Encourage use of incentive spirometry Increase ambulation Continue antibiotics in the form of Zosyn while in hospital Likely discharge home if tolerates diet advancement today Admission and Anticipated Discharge Date Admission Date: August 05, 2022 Supervising Physician Co-Signing Physician Notes Patient seen examined, labs reviewed, agree with above. 67-year-old male POD #1 laparoscopic cholecystectomy for acute cholecystitis. Feeling much better than prior to surgery. A little sore at his epigastric incision. On exam he is afebrile with stable vitals, abdomen soft, probably tender to palpation, incisions without infection. We will advance diet to regular, can discharge this afternoon if tolerates. Wound care instructions and activity restrictions reviewed, return precautions given. Follow-up in general surgery clinic in 2 weeks. Subjective Patient is resting comfortably in bed. He notes some tenderness at surgical incisions but otherwise pain has improved since admission. No BM or flatus since surgery. He is tolerating liquids. He is voiding without difficulty. Physical Exam Gastrointestinal (Abdomen): Abdomen is minimally distended. Bowel sounds are hypoactive. Laparoscopic incisions are all clean, dry, intact. Appropriate tenderness noted near surgical incisions. Results & Data ([facility]) Vital Signs (Past 12 Hours) Vital Signs Temp Pulse Resp BP Pulse Ox O2 Del Method 08/06/22 02:56 36.8 C 79 16 101/67 93 Room Air 08/05/22 22:30 36.5 C 83 18 130/84 96 Room Air 08/05/22 19:09 36.4 C L 84 16 127/84 96 Room Air 08/05/22 18:02 36.4 C L 83 16 123/85 96 Room Air PG Care Time/CCT Total # of Minutes Spent Total Time Spent with Patient: Total time spent is greater than 50% in coordination of care (as documented) at patient's floor/unit and/or counseling patient: Coding Level of Care Code None Diagnoses Acute cholecystitis K81.0
[2022-08-06 06:23] LABS: Basophils # (auto) 0.01 K/uL (0-0.2); Basophils % (auto) 0.1 %; Eosinophils # (auto) 0.02 K/uL (0-0.50); Eosinophils % (auto) 0.2 %; Hematocrit (blood only) 40.4 % (40.1-51.0); Hemoglobin 13.6 g/dl (14.0-18.0); Immature Granulocytes # (auto) 0.08 K/uL (0.00-0.02); Immature Granulocytes % (auto) 0.7 %; Lymphocytes # (auto) 0.59 K/uL (1.2-3.4); Lymphocytes % (auto) 4.8 %; Mean Corpuscular Hemoglobin 31.1 pg (25.0-34.0); Mean Corpuscular Hgb Conc 33.7 g/dL (32.0-36.0); Mean Corpuscular Volume 92.4 fL (80.0-100.0); Mean Platelet Volume 9.5 fL (9.4-12.4); Monocytes # (auto) 0.66 K/uL (0.24-0.82); Monocytes % (auto) 5.4 %; Neutrophils # (auto) 10.89 K/uL (1.4-6.5); Neutrophils % (auto) 88.8 %; Platelet Count 146 K/uL (130-400); RDW Coefficient of Variation 12.7 % (11.5-14.5); RDW Standard Deviation 43.5 fL (36.4-46.3); Red Blood Count 4.37 M/uL (4.63-6.08); White Blood Count 12.25 K/ul (4.8-10.8)
[2022-08-06 08:03] LABS: Albumin Level 3.4 gm/dl (3.4-5.0); BUN Creatinine Ratio 12.3 (10-20); Bilirubin Direct 0.4 mg/dl (0-0.2); Bilirubin,Total 1.2 mg/dl (0.2-1.0); Creatinine Clr Calc Pharmacy 98.6 ml/min; Est GFR (African American) 109.7 ml/min; Est GFR (Non-African American) 94.6 ml/min; Potassium 3.4 mmol/L (3.5-5.1); Total Protein 6.3 gm/dl (6.0-8.3)
--- NOTE | 2022-08-09 11:03 | Discharge Summary ---
Date of Service August 06, 2022 Admission HPI Per Admitting Provider This is a 67y M with no significant PMH who presents to the [facility] ED on 08/05/22 with complaints of abdominal pain. Patient states his pain started yesterday around 2pm. Prior to the pain starting he had a banana and yogurt for bfast and a wrap for lunch. The pain has been constant in the epigastric/RUQ region, rating it a 7/10 in severity. Reports pain also radiates into his back in between the shoulder blades. He has not had anything to eat since yesterday for lunch other than drinking water. He developed some nausea and 1 bout of emesis (mucous/saliva like in nature). He was unable to get comfortable or get any sleep last night. Due to ongoing symptoms he presented to the ER today. A CT a/p was obtained that revealed findings consistent with acute cholecystitis. Patient denies any symptoms like this before. Prior abdominal surgical history includes a laparoscopic bilateral inguinal hernia repair. Does note a history of alcohol intake, 5-6 beers/day. Principal Diagnosis acute cholecystitis Discharge Exam awake/alert Respiratory normal respiratory effort Gastrointestinal (Abdomen) Inspection/Auscultation: + abdominal surgical incision (c/d/i) Percussion/Palpation: + abdomen tender (expected mi incisional discomfort to palpation) and abdomen soft Discharge Data Allergies Allergy/AdvReac Type Severity Reaction Status Date / Time No Known Allergies Allergy Unverified 08/05/22 16:11 Consultations 08/05/22 10:59 ED Decision to Admit Stat Procedures Performed Operation Date: 08/05/22 15:55 Actual Procedures p Laparoscopic Cholecystectomy(Not Applicable) - Edi Mckenzie DO, FACS Ordered Studies 08/05/22 09:07 CT abd pelvis IV con only Stat Hospital Course (1) Acute cholecystitis: This is a 67yM who presented to the [facility] ED on 08/05/22 with abdominal pain. Workup in the ED showed a WBC of [address] a/p concerning for acute c holecystitis. The patient was tender to palpation in the RUQ. Patient made NPO with IVF, given pre-op abx, and booked for the OR. On 08/05 the patient went to the OR with Dr. Mckenzie for a laparoscopic cholecystectomy. The patient tolerated the procedure well, see operative report for full details. Post operatively the patient was given a clear liquid diet, pain managed on prn meds, and incisions clean/dry/intact. On POD#1 the patient's diet was advanced to regular without issues. Incisions c/d/i. Pain managed on prn medications and he was deemed stable for discharge to home. Asked pt to follow up in clinic within 1-2 weeks. Total Time Total Time Spent Total Time Spent (In Minutes): 15 Discharge Plan Discharge Items Patient Disposition: Home - Self-Care Reason For Visit: STOMACH PAIN/DISCOMFORT Discharge Diagnosis: laparoscopic cholecystectomy Activity: Per Instructions section Lifting: No more than 10 pounds Bathing Comment: may shower; no soaking in tubs/pools Exercise/Sports: Wait until after follow-up appointment Driving/Machine Use: no driving while taking any narcotics for pain Non-emergency contact: Surgeon Call non-emergency contact if: you have any medication questions, your symptoms worsen, your pain is not controlled, your pain is concerning for you, you have a fever, your temperature is above 101.5, your wound has increased redness, your wound has increased drainage and your wound pain has increased Follow-up/Referrals: Edi Mckenzie, PETE NICOLE [Physician] - (Please call to schedule follow up in clinic within 2 weeks) Viet Ray [Primary Care Provider] - Diet: Regular Addtl Attending Provider Instructions: Pending Studies at Discharge: Yes Studies:: surgical pathology Stand-Alone Forms: My [facility] Score The Board Medications and DC Order Prescriptions: New oxycodone-acetaminophen [Percocet] 5-325 mg tablet 1 - 2 tab PO .q4-6h PRN (Reason: pain, for initial therapy, max 6 tabs per day) Qty: 15 0RF Discharge Orders: Discharge Order (Routine); Ordered 08/06/22 Ordered By: Enrique Dueñas/Other Patient Handouts: Cholecystectomy Admission Data Admit Date/Time: 08/05/22 15:10 Attending Provider: Edi Mckenzie Admit Provider: Edi Mckenzie Primary Care Provider: Viet Ray Other Providers: Edi Mckenzie Other Interventions: Discharge Summary Assessment (RN) Last Done: 08/06/22 10:06 Coding Level of Care Code D/C DAY MANAGEMENT <30 MINS Diagnoses Acute cholecystitis K81.0
== END 2022-08-06 13:51 | disposition home or self-care (01) ==
LOC: ED 08:40 → 3E 12:43 → ASU 12:43
DX: K80.12 Calculus of gallbladder with acute and chronic cholecystitis without obstruction